=== PATIENT | female | born 1990 | race Caucasian/White ===

== ENCOUNTER 2021-12-16 05:56 | Inpatient (IN) | payer OTHER ==
[~2021-12-16] VITALS: Ht 172.7 cm; Wt 99.8 kg
[2021-12-16 06:27] LABS: HEMOGLOBIN 13.2 gm/dl (12.3-15.3); RED BLOOD COUNT 4.09 M/UL (4.00-5.10); WHITE BLOOD COUNT 10.3 K/UL (4.5-11.0)
[2021-12-16] MEDS ORDERED: COLACE 100MG C100 MG PO (07:53)
[2021-12-16] MEDS ORDERED: FERROUS SULFAT325 MG PO (13:04)
[2021-12-16] MEDS ORDERED: IBUPROFEN600 MG PO (13:04)
[2021-12-16] MEDS ORDERED: COLACE100 MG PO (13:04)
[2021-12-17 07:13] LABS: HEMOGLOBIN 10.9 gm/dl (12.3-15.3)
== END 2021-12-17 16:22 | disposition home or self-care (01) | DRG 807 ==
LOC: OB 05:56
PROVIDERS: Obstetrics & Gynecology; ADMIT Obstetrics & Gynecology
PROC: 10E0XZZ Delivery of Products of Conception, External Approach (ICD-10-PCS; principal; 2021-12-16)
PROC: 10907ZC Drainage of Amniotic Fluid, Therapeutic from Products of Conception, Via Natural or Artificial Opening (ICD-10-PCS; 2021-12-16)
PROC: 3E033VJ Introduction of Other Hormone into Peripheral Vein, Percutaneous Approach (ICD-10-PCS; 2021-12-16)
PROC: 4A1HXCZ Monitoring of Products of Conception, Cardiac Rate, External Approach (ICD-10-PCS; 2021-12-16)
DX: O69.81X0 Labor and delivery complicated by cord around neck, without compression, not applicable or unspecified (principal); Z37.0 Single live birth; Z20.822 Contact with and (suspected) exposure to COVID-19; Z3A.39 39 weeks gestation of pregnancy; Z98.890 Other specified postprocedural states; Z82.49 Family history of ischemic heart disease and other diseases of the circulatory system; Z83.3 Family history of diabetes mellitus; Z80.41 Family history of malignant neoplasm of ovary
CPT/HCPCS: 36415; 81001; 85014; 85018; 85025; J2590